=== PATIENT | female | born 1985 | race Caucasian/White ===

== ENCOUNTER 2020-12-20 15:53 | Emergency (ER) | payer OTHER ==
[~2020-12-20 15:53] MED LIST: BACTRIM DS TAB1 EACH PO; ZOFRAN8 MG PO
[2020-12-20 21:22] LABS: BASOPHIL 0.9 % (0-2); EOSINOPHIL 2.7 % (0-5); HCT 39.5 % (37.0-47.0); HGB 13.9 g/dl (12.5-16.0); LYMPHOCYTE 31.8 % (15-48); MCH 31.1 pg (25.0-31.0); MCHC 35.2 g/dL (32.0-36.0); MCV 88.4 fL (78.0-100.0); MONOCYTE 5.1 % (0-12); MPV 9.5 fL (6.0-9.5); NEUTROPHIL 59.3 % (41-80); NRBC 0; PLT 292 K/uL (150-400); RBC 4.47 M/uL (4.20-5.40); WBC 9.4 K/uL (4.0-10.5)
[2020-12-20 21:23] LABS: BILIRUBIN NEGATIVE (NEGATIVE); BLOOD NEGATIVE Ery/uL (NEGATIVE); CLARITY CLEAR (CLEAR); COLOR YELLOW (YELLOW); GLUCOSE (U) NORMAL (NORMAL); LEUKOCYTES NEGATIVE Leu/uL (NEGATIVE); NITRITE NEGATIVE (NEGATIVE); PROTEIN NEGATIVE (NEGATIVE); SPECIFIC GRAVITY 1.025 (1.001-1.030)
[2020-12-20 21:49] LABS: ALBUMIN 3.7 g/dL (3.4-5.0); ALKALINE PHOSHATASE 73 U/L (46-116); ALT 25 U/L (14-59); AST 18 U/L (15-37); BILIRUBIN - TOTAL 0.4 mg/dL (0.2-1.0); BUN 8 mg/dL (7-18); BUN/CREAT RATIO (CALC) 8.9 RATIO; C-REACTIVE PROTEIN < 0.20 mg/dL (<=0.90); CHLORIDE 104 mmol/L (98-107); CO2 (BICARBONATE) 29 mmol/L (21-32); GLOBULIN (CALCULATION) 3.8 g/dL; GLUCOSE 87 mg/dL (74-106); POTASSIUM 3.7 mmol/L (3.5-5.1); TOTAL PROTEIN 7.5 g/dL (6.4-8.2)
== END 2020-12-20 23:22 | disposition home or self-care (01) ==
LOC: FER 15:53
PROVIDERS: Emergency Medicine Emergency Medical Services
DX: M25.572 Pain in left ankle and joints of left foot (principal)
CPT/HCPCS: 36415; 73610; 80053; 81003; 84550; 85025; 85379; 86140; 93971